=== PATIENT | female | born 1990 | race Caucasian/White ===

== ENCOUNTER 2022-08-10 04:17 | Day surgery (SDC) | payer OTHER ==
[2022-08-08 11:15] VITALS: BMI 26.9
[2022-08-10] MEDS ORDERED: VASOPRESSIN 20 UNITS/ML VIAL IV ONE (13:59)
[2022-08-10] MEDS ORDERED: PROPOFOL 20 ML ONE (14:13)
[2022-08-10] MEDS ORDERED: MIDAZOLAM HCL 2 MG/2 ML SINGLE DOSE VIAL ONE (14:14)
[2022-08-10] MEDS ORDERED: IODINE/POTASSIUM IODIDE 5%/10% 14 ML BOTTLE NR ONE (14:33)
[2022-08-10] MEDS ORDERED: FERRIC SUBSULFATE 500 ML BOTTLE TP ONE (14:37)
[2022-08-10] MEDS ORDERED: ONDANSETRON 4 MG/2 ML VIAL IVPUSH PRN ×2 (14:57→16:19)
[2022-08-10] MEDS ORDERED: oxyCODONE HCL 5 MG TABLET PO PRN (14:57)
[2022-08-10] MEDS ORDERED: ONDANSETRON 4 MG/2 ML VIAL ONE (16:18)
[2022-08-10 17:53] VITALS: BP 106/80; PULSE 89; RESP 18; TEMP 98.1
== END 2022-08-10 17:57 | disposition home or self-care (01) ==
LOC: JASU-SURG 04:17
PROVIDERS: ATTEND Obstetrics & Gynecology
PROC: 0UBC7ZX Excision of Cervix, Via Natural or Artificial Opening, Diagnostic (ICD-10-PCS; principal; 2022-08-10 14:00)
DX: D06.9 Carcinoma in situ of cervix, unspecified (principal)
CPT/HCPCS: 88307-TC; 94760

== ENCOUNTER 2023-01-22 00:49 | Emergency (ER) | payer OTHER ==
[2023-01-22 01:01] VITALS: BP 146/84; PULSE 109; RESP 19; TEMP 98.3; BMI 27.3
[2023-01-22] MEDS ORDERED: ACETAMINOPHEN 1000 MG/100 ML BAG IVPB ONE (01:51)
[2023-01-22] MEDS ORDERED: ACETAMINOPHEN INJECTION 100 ML IVPB ONE (02:04)
[2023-01-22 03:05] LABS: HEMATOCRIT 37.3 % (32.4-45.2); HEMOGLOBIN 12.6 GM/dL (10.7-15.3); MCH 28.9 pg (25.7-33.7); MCHC 33.8 g/dl (32.0-36.0); MEAN CELL VOLUME 85.6 fl (80-96); MEAN PLT VOLUME 7.9 fl (7.5-11.1); PLATELET COUNT 262 10^3/uL (134-434); RBC 4.36 M/mm3 (3.60-5.2); RDW 13.6 % (11.6-15.6); WHITE BLOOD COUNT 15.1 K/mm3 (4.0-10.0)
[2023-01-22 03:25] LABS: POTASSIUM 4.2 mmol/L (3.5-5.1)
[2023-01-22 03:27] LABS: CALCIUM 8.9 mg/dL (8.5-10.1)
[2023-01-22 03:28] LABS: ALBUMIN 4.1 g/dl (3.4-5.0); BLOOD UREA NITROGEN 12.9 mg/dL (7-18)
[2023-01-22 03:31] LABS: CREATININE 1.1 mg/dL (0.55-1.3)
[2023-01-22 03:33] LABS: TOT PROT 7.5 g/dl (6.4-8.2)
[2023-01-22 03:37] LABS: INR 1.03 (0.83-1.09); PROTHROMBIN TIME (PATIENT) 11.9 SEC (9.7-13.0)
[2023-01-22 03:40] LABS: ACTIVATED PTT 29.7 SECONDS (25.2-36.5)
[2023-01-22 04:08] LABS: BILIRUBIN,TOTAL 0.4 mg/dL (0.2-1)
[2023-01-22 04:58] LABS: URINE APPEARANCE CLEAR; URINE BILIRUBIN NEGATIVE (NEGATIVE); URINE COLOR YELLOW; URINE GLUCOSE (UA) 100 (NEGATIVE)
[2023-01-22 04:59] LABS: PH,URINE 8.5 (5.0-8.0); URINE KETONE 15 mg/dl (NEGATIVE); URINE LEUK ESTERASE NEGATIVE (NEGATIVE); URINE NITRITE NEGATIVE (NEGATIVE); URINE PROTEIN NEGATIVE (NEGATIVE); URINE UROBILINOGEN 0.2 mg/dL (0.2-1.0)
[2023-01-22 05:01] LABS: EPI CELLS 17 /uL (0-25.1); HYALINE CASTS 0 /uL (0-3.1); URINE BACTERIA 279 /uL (0-1359); URINE RBC 87 /uL (0-23.9); URINE WBC 4 /uL (0-25.8)
[2023-01-22] MEDS ORDERED: CEPHALEXIN MONOHYDRATE 500 MG CAPSULE (UD) PO ONE (05:12)
[2023-01-22] MEDS ORDERED: CEPHALEXIN MONOHYDRATE 500 MG CAPSULE (UD) ONE (05:40)
== END 2023-01-22 06:08 | disposition home or self-care (01) ==
LOC: JER 00:49
PROC: 3E033NZ Introduction of Analgesics, Hypnotics, Sedatives into Peripheral Vein, Percutaneous Approach (ICD-10-PCS; principal; 2023-01-22)
DX: O26.891 Other specified pregnancy related conditions, first trimester (principal); M54.50 Low back pain, unspecified; R10.31 Right lower quadrant pain; O21.9 Vomiting of pregnancy, unspecified; O23.41 Unspecified infection of urinary tract in pregnancy, first trimester; N39.0 Urinary tract infection, site not specified; Z3A.01 Less than 8 weeks gestation of pregnancy
CPT/HCPCS: 36415; 76817-TC; 80053; 81003; 84702; 84703; 85025; 85610; 85730; 86850; 86900; 86901; 87086; 99284-25

== ENCOUNTER 2024-05-12 11:41 | Emergency (ER) | payer OTHER ==
[2024-05-12 12:07] VITALS: BP 132/90; PULSE 82; RESP 18; TEMP 98.3; BMI 22.3
[2024-05-12 13:03] LABS: HEMATOCRIT 40.6 % (32.4-45.2); HEMOGLOBIN 13.7 G/dL (10.7-15.3); MCH 29.7 pg (25.7-33.7); MCHC 33.8 g/dl (32.0-36.0); MEAN CELL VOLUME 87.7 fl (80-96); MEAN PLT VOLUME 8.4 fl (7.5-11.1); RBC 4.63 10^6/uL (3.60-5.2); RDW 13.8 % (11.6-15.6); WHITE BLOOD COUNT 7.5 10^3/uL (4.0-10.8)
[2024-05-12 13:04] LABS: ALBUMIN 4.6 g/dl (3.4-5.0); CREATININE 0.9 mg/dl (0.6-1.3); POTASSIUM 3.7 mmol/L (3.5-5.1); TOT PROT 7.2 g/dl (6.4-8.2)
[2024-05-12] MEDS ORDERED: cefTRIAXone SODIUM 1 GM VIAL ONE (13:11)
[2024-05-12] MEDS: CEFTRIAXONE 1 GM in DEXTROSE 5%-WATER - 50 ML IVPB ONE (13:23)
[2024-05-12 13:29] LABS: PLATELET ESTIMATE ADEQUATE
[2024-05-12 15:42] LABS: BILIRUBIN,TOTAL 0.6 mg/dL (0.2-1)
[2024-05-12 16:33] LABS: HIV INTERPRETATION NEGATIVE (NEGATIVE)
== END 2024-05-12 16:28 | disposition home or self-care (01) ==
LOC: FER 11:41
DX: R10.9 Unspecified abdominal pain (principal); R35.0 Frequency of micturition
CPT/HCPCS: 36415; 74176-TC; 80053; 81003; 81015; 84703; 85027; 86803; 87086; 87389; 99284-25

== ENCOUNTER 2024-10-07 19:57 | Emergency (ER) | payer OTHER ==
[2024-10-07 20:36] VITALS: BP 120/70; PULSE 128; RESP 18; TEMP 98.6; BMI 23.0
[2024-10-07] MEDS: ACETAMINOPHEN 500 MG TABLET (FP) PO ONE (20:41)
[2024-10-07] MEDS: SODIUM CHLORIDE 1,000 ML IV STA (20:41)
[2024-10-07] MEDS ORDERED: ACETAMINOPHEN 325 MG TABLET (FP) ONE (20:43)
[2024-10-07 21:18] LABS: ABSOLUTE IMMATURE GRANULOCYTES 0.01 x10^3/uL (0.0-0.031); BASOPHILS # 0.01 x10^3/uL (0.01-0.08); EOSINOPHIL % 0.5 % (0.7-5.8); EOSINOPHILS # 0.03 x10^3/uL (0.04-0.36); HEMATOCRIT 35.3 % (34.1-44.9); HEMOGLOBIN 11.6 g/dL (11.2-15.7); MCHC 32.9 g/dl (32.2-35.5); MEAN CELL VOLUME 83.8 fl (79.4-94.8); MEAN PLT VOLUME 10.6 fl (9.4-12.3); MONOCYTE # 0.67 x10^3/uL (0.24-0.86); MONOCYTE % 11.9 % (4.7-12.5); PLATELET COUNT 228 x10^3/uL (182-369); RDW 11.5 % (12.1-16.8)
[2024-10-07 21:19] LABS: HCG,QUALITATIVE URINE Negative
[2024-10-07 21:38] LABS: ALBUMIN 3.9 g/dl (3.4-5.0); ALK PHOS 82 U/L (45-117); ANION GAP 10 mmol/L (4-13); BILIRUBIN,TOTAL 0.8 mg/dl (0.2-1); CALCIUM 9.6 mg/dl (8.5-10.1); CHLORIDE 103 mmol/L (98-107); CO2 26 mmol/L (21-32); CREATININE 0.4 mg/dl (0.6-1.3); GLUCOSE,RANDOM 86 mg/dl (74-106); POTASSIUM 4.5 mmol/L (3.5-5.1); SGOT/AST 25 U/L (15-37); SGPT/ALT 48 U/L (7-52); SODIUM 139 mmol/L (136-145)
[2024-10-07] MEDS ORDERED: IBUPROFEN 400 MG TABLET (FP) PO ONE (22:51)
[2024-10-07] MEDS: IBUPROFEN 100 MG/5 ML UNIT DOSE CUPS PO ONE (22:53)
[2024-10-07 22:54] LABS: HCV DIAGNOSTIC IN-HOUSE W/RFLX NON-REACTIVE (NONREACTIVE)
[2024-10-07 22:55] LABS: HIV INTERPRETATION NEGATIVE (NEGATIVE)
== END 2024-10-07 23:31 | disposition home or self-care (01) ==
LOC: FER 19:57
PROC: 3E0337Z Introduction of Electrolytic and Water Balance Substance into Peripheral Vein, Percutaneous Approach (ICD-10-PCS; principal; 2024-10-07)
DX: J02.9 Acute pharyngitis, unspecified (principal); R11.2 Nausea with vomiting, unspecified; R10.84 Generalized abdominal pain
CPT/HCPCS: 0241U-QW; 36415; 80053; 81003; 81015; 83690; 84703; 85025; 86803; 87086; 87389; 87651; 96360; 99284-25